=== PATIENT | female | born 1950 | race Two or more races ===

== ENCOUNTER 2017-12-25 10:42 | Emergency (ER) | payer BC ==
[2017-12-25 10:43] VITALS: BMI 28.2
[2017-12-25 10:54] VITALS: BP 175/77; PULSE 96; RESP 20; TEMP 98.3; O2SAT 97
--- NOTE | 2017-12-25 11:56 | RAD ---
PROCEDURE: Left Ankle Radiographs. HISTORY: twisted ankle COMPARISON: None FINDINGS: BONES: There is diffuse bone demineralization. There is no acute displaced fracture or bone destruction. Bone alignment is normal. JOINTS: There is mild degenerative osteoarthrosis in the talonavicular joint. Ankle mortise maintained. Talar dome intact SOFT TISSUES: There is mild periarticular soft tissue swelling. OTHER FINDINGS: None. IMPRESSION: No acute fracture or dislocation.
--- NOTE | 2017-12-25 12:12 | C.PDOC ---
History Of Present Illness 67 y/o female presents to the ED complaining of left ankle pain since yesterday. States that yesterday she was getting off the bus and twisted the left ankle. [place] as if something was pulled. Denies any numbness, tingling, or focal weakness. Patient ambulates using a cane at basline. She is still ambulatory but reports it is painful to walk. Time Seen by Provider: 12/25/17 10:58 Chief Complaint (Nursing): Lower Extremity Problem/Injury History Per: Patient History/Exam Limitations: no limitations Onset/Duration Of Symptoms: Days (x2) Current Symptoms Are (Timing): Still Present Past Medical History Reviewed: Historical Data, Nursing Documentation, Vital Signs Vital Signs: Last Vital Signs Temp 98.3 F 12/25/17 10:51 Pulse 96 H 12/25/17 10:51 Resp 20 12/25/17 10:51 BP 175/77 H 12/25/17 10:51 Pulse Ox 97 12/25/17 12:12 - Medical History PMH: Arthritis, HTN, Hypercholesterolemia, Hyperthyroidism Denies: Chronic Kidney Disease Surgical History: Tonsillectomy - [facility] Procedures COMPLETE THYROIDECTOMY (06/23/13) REPAIR OF HAMMER TOE (05/12/14) Family History: States: No Known Family Hx - Social History Hx Alcohol Use: No Hx Substance Use: No - Immunization History Hx Tetanus Toxoid Vaccination: No Hx Influenza Vaccination: No Hx Pneumococcal Vaccination: No Review Of Systems Except As Marked, All Systems Reviewed And Found Negative. Musculoskeletal: Positive for: Foot Pain (left ankle) Neurological: Negative for: Weakness, Numbness, Other (tingling) Physical Exam - Physical Exam Appears: Non-toxic, No Acute Distress Skin: Normal Color, Warm, Dry Extremity: Tenderness (Slight tenderness and swelling to left lateral malleolus) , No Deformity (of malleolus), Other (arthritic deformities to left foot) Pulses: Left Dorsalis Pedis: Normal, Right Dorsalis Pedis: Normal Neurological/Psych: Oriented x3, Normal Speech, Normal Motor, Normal Sensation Gait: Steady (with cane, at baseline) ED Course And Treatment O2 Sat by Pulse Oximetry: 97 (RA) Pulse Ox Interpretation: Normal - Other Rad x-ray left ankle X-Ray: Viewed By Me, Read By Radiologist Interpretation: FINDINGS: BONES: There is diffuse bone demineralization. There is no acute displaced fracture or bone destruction. Bone alignment is normal. JOINTS: There is mild degenerative osteoarthrosis in the talonavicular joint. Ankle mortise maintained. Talar dome intact. SOFT TISSUES : There is mild periarticular soft tissue swelling. OTHER FINDINGS: None. IMPRESSION: No acute fracture or dislocation. Progress Note: Patient informed of negative x-ray results. Left foot placed in air cast. Advised to follow up with orthopedist for further evaluation Disposition Counseled Patient/Family Regarding: Studies Performed, Diagnosis, Need For Followup - Disposition Disposition: HOME/ ROUTINE Disposition Time: 12:11 Condition: STABLE Additional Instructions: Follow up with Medicaid Specialist within 1-2 days. Return to ED if feel worse. Instructions: Ankle Sprain (DC) Forms: [employer] (Irish) - Clinical Impression Clinical Impression: Ankle sprain - PA / EPIC KALEIDOSCOPE ANALYST / Resident Statement MD/DO has reviewed & agrees with the documentation as recorded. - Scribe Statement The provider has reviewed the documentation as recorded by the Scribe (Ramona Sheridan) All medical record entries made by the Scribe were at my direction and personally dictated by me. I have reviewed the chart and agree that the record accurately reflects my personal performance of the history, physical exam, medical decision making, and the department course for this patient. I have also personally directed, reviewed, and agree with the discharge instructions and disposition.
== END 2017-12-25 12:34 | disposition home or self-care (01) ==
LOC: C.ER 10:42
DX: S93.402A Sprain of unspecified ligament of left ankle, initial encounter (principal); X50.9XXA Other and unspecified overexertion or strenuous movements or postures, initial encounter

== ENCOUNTER 2018-01-13 20:35 | Observation (INO) | payer BC ==
[2018-01-13 20:36] VITALS: BMI 28.2
--- NOTE | 2018-01-13 21:44 | C.PDOC ---
History Of Present Illness 67 year old female with PMHx of HTN and DM is brought to the ED by EMS for evaluation of a syncopal episode that occurred earlier today. As per family patient stood up then passed out on her fett which made her fall onto her knees and hit her head. Relatives report patient was out for approximately 1 minute. Patient is now c/o left shoulder pain, headache and multiple bruises to hands and left knee. Patient reports she does not remember what happened. Patient states he recently fractured her ankle 3 weeks ago but was not related to a fall. Patient denies fever, chills, nausea, vomit, dizziness, CP, SOB, weakness , numbness. - HPI Chief Complaint (Nursing): Trauma History Per: Patient History/Exam Limitations: no limitations Onset/Duration Of Symptoms: Days Injury Occurred (Timing): Just Before Arrival Location Of Injury: Right: Hand, Left: Hand, Head, Knee Associated Symptoms: LOC Recent travel outside of the [place]: No Additional History Per: Patient - Fall Fall:Prior To Injury: Passed Out Past Medical History Reviewed: Historical Data, Nursing Documentation, Vital Signs Vital Signs: Last Vital Signs Temp 98.7 F 01/13/18 20:44 Pulse 69 01/14/18 05:13 Resp 18 01/14/18 05:13 BP 116/53 L 01/14/18 05:13 Pulse Ox 98 01/14/18 05:13 - Medical History PMH: Arthritis, HTN, Hypercholesterolemia, Hyperthyroidism, Hypothyroidism Denies: Chronic Kidney Disease Surgical History: Tonsillectomy - [facility] Procedures COMPLETE THYROIDECTOMY (06/23/13) REPAIR OF HAMMER TOE (05/12/14) Family History: States: No Known Family Hx - Social History Hx Alcohol Use: No Hx Substance Use: No - Immunization History Hx Tetanus Toxoid Vaccination: No Hx Influenza Vaccination: No Hx Pneumococcal Vaccination: No Review Of Systems Constitutional: Negative for: Fever, Chills Eyes: Negative for: Vision Change Cardiovascular: Negative for: Chest Pain Respiratory: Negative for: Shortness of Breath Gastrointestinal: Negative for: Abdominal Pain Musculoskeletal: Positive for: Shoulder Pain Skin: Positive for: Bruising. Negative for: Rash Neurological: Positive for: Headache. Negative for: Weakness, Numbness Physical Exam - Physical Exam Appears: Non-toxic, No Acute Distress Skin: Normal Color, Warm, Dry Head: Normacephalic, Laceration (1 cm left temporal with no separation at wound edges) Eye(s): bilateral: Normal Inspection, PERRL, EOMI Nose: No Discharge Oral Mucosa: Moist Neck: Normal ROM, No Midline Cervical Tenderness, Supple Chest: Symmetrical Cardiovascular: Rhythm Regular, No Murmur Respiratory: Normal Breath Sounds, No Rales, No Rhonchi, No Wheezing Gastrointestinal/Abdominal: Soft, No Tenderness, No Guarding, No Rebound Back: No Paraspinal Tenderness Extremity: Normal ROM, Tenderness (left knee medial aspect, ecchymosis with hemarthrosis. Left shoulder hematoma humeral head), Capillary Refill (< 2 seconds), Other (left ankle air cast, ) Pulses: Left Radial: Normal, Right Radial: Normal, Left Dorsalis Pedis: Normal, Right Dorsalis Pedis: Normal Neurological/Psych: Oriented x3, Normal Speech, Normal Cognition, Normal Cranial Nerves, Normal Motor, Normal Sensation Gait: Unable To Assess ED Course And Treatment - Laboratory Results Result Diagrams: 01/14/18 04:24 01/14/18 04:24 ECG: Interpreted By Me, Viewed By Me ECG Rhythm: Sinus Rhythm ECG Interpretation: Normal Interpretation Of ECG: No ectopy, normal intervals, no acute ST or T wave changes Rate From EC (BPM) O2 Sat by Pulse Oximetry: 96 (ON RA) Pulse Ox Interpretation: Normal - Radiology CXR: Interpreted by Me, Viewed By Me CXR Interpretation: Yes: No Acute Disease. No: Infiltrates - Other Rad Left Knee X-Ray X-Ray: Interpreted by Me, Viewed By Me Interpretation: No evidence of fracture or dislocation. Protesis appears to be intact Left Shoulder X-Ray X-Ray: Interpreted by Me, Viewed By Me Interpretation: No acute fracture or dislocation - CT Scan/US CT head Other Rad Studies (CT/US): Read By Radiologist, Radiology Report Reviewed CT/US Interpretation: EXAM: CT Head Without Intravenous Contrast. CLINICAL HISTORY: 67 years old, female; Injury or trauma; Fall; Initial encounter; Blunt trauma (contusions or. hematomas); With loss of consciousness; Loss of consciousness for 30 minutes or less. TECHNIQUE: Axial computed tomography images of the head/brain without intravenous contrast. All CT scans at. this facility use one or more dose reduction techniques, viz.: automated exposure control; ma/kV. adjustment per patient size (including targeted exams where dose is matched to indication; i.e. head);. or iterative reconstruction technique. Coronal and sagittal reformatted images were created and reviewed. COMPARISON: No relevant prior studies available. FINDINGS: Brain: There is mild diffuse cerebral atrophy present, consistent with this patient's age. There is mild. diffuse heterogeneity of the white matter attenuation, consistent with chronic white matter ischemic. changes. No hemorrhage. Ventricles: The ventricular system demonstrates mild diffuse compensatory enlargement. Bones/joints: Unremarkable. No acute fracture. Soft tissues: Unremarkable. Sinuses: Unremarkable as visualized. No acute sinusitis. Mastoid air cells: Unremarkable as visualized. No mastoid effusion. IMPRESSION: Age-related atrophy and chronic white matter ischemic changes, with no evidence of an. acute intracranial abnormality. CTA chest Other Rad Studies (CT/US): Read By Radiologist, Radiology Report Reviewed CT/US Interpretation: EXAM: CT Angiography Chest With Intravenous Contrast. CLINICAL HISTORY: 67 years old, female; Signs and symptoms; Other: Eleveated d- dimer; Additional info: Syncope,. elevated ddimer. TECHNIQUE: Axial computed tomographic angiography images of the chest with intravenous contrast using. pulmonary embolism protocol. All CT scans at this facility use one or more dose reduction. techniques, viz.: automated exposure control; ma/kV adjustment per patient size (including targeted. exams where dose is matched to indication; i.e. head); or iterative reconstruction technique. MIP reconstructed images were created and reviewed. Coronal and sagittal reformatted images were created and reviewed. CONTRAST: 100 mL of [id number] administered intravenously. COMPARISON: No relevant prior studies available. FINDINGS: Pulmonary arteries: Unremarkable. No pulmonary embolism. Aorta: The aorta demonstrates mild atherosclerotic calcification. No thoracic aortic aneurysm. Lungs: Mild nonspecific bilateral groundglass attenuation is present. No focal consolidation. Right. middle lobe and lingular linear atelectasis or scar. Pleural space: Unremarkable. No significant effusion. No pneumothorax.Heart: Coronary artery calcification. No significant pericardial effusion. No evidence of RV. dysfunction. Bones/joints: There are degenerative changes in the spine with anterior flowing osteophytes at. multiple levels. No acute fracture. No dislocation. Soft tissues: Unremarkable. Lymph nodes: Unremarkable. No enlarged lymph nodes. IMPRESSION: No pulmonary embolism. Mild nonspecific groundglass attenuation bilaterally. No focal consolidation. Thank you for allowing us to participate in the care of your patient. Dictated and Authenticated by: Monae Packer MD. 01/13/2018 11:59 PM Eastern Time ([place] & [place]) Medical Decision Making Medical Decision Making: Impression: syncope plan: * CT head * EKG * Labs * CXR * Left knee X-Ray * Left shoulder X-Ray Disposition - Disposition Disposition: HOSPITALIZED Disposition Time: 05:14 Condition: FAIR - Clinical Impression Clinical Impression: Syncope - Scribe Statement The provider has reviewed the documentation as recorded by the Scribe Joseluis Nino All medical record entries made by the Scribe were at my direction and personally dictated by me. I have reviewed the chart and agree that the record accurately reflects my personal performance of the history, physical exam, medical decision making, and the department course for this patient. I have also personally directed, reviewed, and agree with the discharge instructions and disposition.
[2018-01-13 22:01] LABS: BASO # 0.1 K/uL (0.0-0.2); EOS # 0.1 K/uL (0.0-0.7); EOS % 2.1 % (0.0-4.0); HEMOGLOBIN 11.8 g/dL (11.0-16.0); LYMPH # 1.2 K/uL (1.0-4.3); MEAN CORPUSCULAR HEMOGLOBIN 31.4 pg (27.0-31.0); MEAN CORPUSCULAR HGB CONC 33.9 g/dL (33.0-37.0); MEAN PLATELET VOLUME 8.5 fL (7.2-11.7); MONO # 0.6 K/uL (0.0-0.8); MONO % 9.3 % (0.0-10.0); NEUT # 4.8 K/uL (1.8-7.0); NEUT % 69.6 % (50.0-75.0); RBC 3.76 Mil/uL (3.80-5.20); RED CELL DISTRIBUTION WIDTH 14.6 % (11.5-14.5); WHITE BLOOD COUNT 6.9 K/uL (4.8-10.8)
[2018-01-13 22:03] LABS: MEAN CELL VOLUME 92.5 fL (81.0-99.0)
[2018-01-13 22:10] LABS: INR 0.9; PROTHROMBIN TIME 10.1 SECONDS (9.7-12.2)
[2018-01-13 22:14] LABS: ALB/GLOB RATIO 1.2 (1.0-2.1); ALT/SGPT 19 U/L (9-52); AST/SGOT 24 U/L (14-36); BLOOD UREA NITROGEN 23 mg/dL (7-17); GFR AFRICAN-AMERICAN 55; GFR NON-AFRICAN AMERICAN 45
[2018-01-13] MEDS ORDERED: Iodixanol 320 MG/ML 100 ML BOTTLE IV ONE (22:30)
--- NOTE | 2018-01-13 23:33 | CT ---
EXAM: CT Head Without Intravenous Contrast CLINICAL HISTORY: 67 years old, female; Injury or trauma; Fall; Initial encounter; Blunt trauma (contusions or hematomas); With loss of consciousness; Loss of consciousness for 30 minutes or less TECHNIQUE: Axial computed tomography images of the head/brain without intravenous contrast. All CT scans at this facility use one or more dose reduction techniques, viz.: automated exposure control; ma/kV adjustment per patient size (including targeted exams where dose is matched to indication; i.e. head); or iterative reconstruction technique. Coronal and sagittal reformatted images were created and reviewed. COMPARISON: No relevant prior studies available. FINDINGS: Brain: There is mild diffuse cerebral atrophy present, consistent with this patient's age. There is mild diffuse heterogeneity of the white matter attenuation, consistent with chronic white matter ischemic changes. No hemorrhage. Ventricles: The ventricular system demonstrates mild diffuse compensatory enlargement. Bones/joints: Unremarkable. No acute fracture. Soft tissues: Unremarkable. Sinuses: Unremarkable as visualized. No acute sinusitis. Mastoid air cells: Unremarkable as visualized. No mastoid effusion. IMPRESSION: Age-related atrophy and chronic white matter ischemic changes, with no evidence of an acute intracranial abnormality.
--- NOTE | 2018-01-13 23:59 | CT ---
EXAM: CT Angiography Chest With Intravenous Contrast CLINICAL HISTORY: 67 years old, female; Signs and symptoms; Other: Eleveated d-dimer; Additional info: Syncope, elevated ddimer TECHNIQUE: Axial computed tomographic angiography images of the chest with intravenous contrast using pulmonary embolism protocol. All CT scans at this facility use one or more dose reduction techniques, viz.: automated exposure control; ma/kV adjustment per patient size (including targeted exams where dose is matched to indication; i.e. head); or iterative reconstruction technique. MIP reconstructed images were created and reviewed. Coronal and sagittal reformatted images were created and reviewed. CONTRAST: 100 mL of [id number] administered intravenously. COMPARISON: No relevant prior studies available. FINDINGS: Pulmonary arteries: Unremarkable. No pulmonary embolism. Aorta: The aorta demonstrates mild atherosclerotic calcification. No thoracic aortic aneurysm. Lungs: Mild nonspecific bilateral groundglass attenuation is present. No focal consolidation. Right middle lobe and lingular linear atelectasis or scar. Pleural space: Unremarkable. No significant effusion. No pneumothorax. Heart: Coronary artery calcification. No significant pericardial effusion. No evidence of RV dysfunction. Bones/joints: There are degenerative changes in the spine with anterior flowing osteophytes at multiple levels. No acute fracture. No dislocation. Soft tissues: Unremarkable. Lymph nodes: Unremarkable. No enlarged lymph nodes. IMPRESSION: No pulmonary embolism. Mild nonspecific groundglass attenuation bilaterally. No focal consolidation.
--- NOTE | 2018-01-14 00:59 | CP.PCM.HP ---
<Andrea Nunez - Last Filed: 01/14/18 02:57> History of Present Illness - History of Present Illness History of Present Illness: CC: Syncope 67 year old female with past medical history of hypertension, hyperlipidemia, thyroid nodule presents to the ED after having a syncope episode. Patient had a witnessed syncope episode at home around 8pm today. Patient stood up from sitting on a couch to put dinner plates away, where patient suddenly lost consciousness. Patient fell forward and injuring her knees, shoulder and forehead. Patient's last known memory was picking up plates off the table. She was unconscious for a few seconds before her family members came to wake up her. Patient denies tongue biting, urinary or fecal incontinence. No prior episode of the same and there is no recent changes in medication. Patient's family members deny witness of slurred of speech, facial droops, or extremity weaknesses. She further denies having fever, chills, shortness of breath, chest pain, nausea, vomiting, or diarrhea. PMD: Dr. Kevin Bermudez PMHx: hypertension, hyperlipidemia, thyroid nodule PSHx: tonsillectomy, thyroidectomy Allergy: NKDA Social Hx: social alcohol, denies tobacco or drug use Family Hx: non contributory Home meds: Lantus 5u bid, lipitor 10mg, valsartan 80mg, synthroid 0.112mg Present on Admission - Present on Admission Any Indicators Present on Admission: No Review of Systems - Constitutional Constitutional: As Per HPI. absent: Fever, Lethargy - EENT Eyes: As Per HPI. absent: Blind Spots Nose/Mouth/Throat: As Per HPI. absent: Epistaxis, Nasal Trauma - Breasts Breasts: As Per HPI - Cardiovascular Cardiovascular: As Per HPI, Syncope. absent: Chest Pain, Palpitations, Pedal Edema - Respiratory Respiratory: As Per HPI. absent: Cough, Dyspnea - Gastrointestinal Gastrointestinal: As Per HPI. absent: Abdominal Pain, Diarrhea, Nausea, Vomiting - Genitourinary Genitourinary: As Per HPI - Reproductive: Female Reproductive:Female: As Per HPI - Menstruation Menstruation: As Per HPI - Musculoskeletal Musculoskeletal: As Per HPI, Arthralgias, Stiffness - Integumentary Integumentary: As Per HPI, Erythema, Rash, Wounds - Neurological Neurological: As Per HPI, Headaches, Syncope - Psychiatric Psychiatric: As Per HPI. absent: Abnormal Sleep Pattern, Anxiety, Auditory Hallucinations - Endocrine Endocrine: As Per HPI. absent: Change in Body Appearance - Hematologic/Lymphatic Hematologic: As Per HPI. absent: Easy Bleeding Past Patient History - Past Medical History & Family History Past Medical History?: Yes - Past Social History Smoking Status: Heavy Smoker > 10 Cigarettes Daily - CARDIAC Hx Hypercholesterolemia: Yes Hx Hypertension: Yes - PULMONARY Hx Respiratory Disorders: No - NEUROLOGICAL Hx Neurological Disorder: Yes Other/Comment: TINGLING LT HAND - HEENT Hx HEENT Problems: No - RENAL Hx Chronic Kidney Disease: No - ENDOCRINE/METABOLIC Hx Hyperthyroidism: Yes Hx Hypothyroidism: Yes - HEMATOLOGICAL/ONCOLOGICAL Hx Blood Disorders: No - INTEGUMENTARY Hx Dermatological Problems: No - MUSCULOSKELETAL/RHEUMATOLOGICAL Hx Arthritis: Yes - GASTROINTESTINAL Hx Gastrointestinal Disorders: No - GENITOURINARY/GYNECOLOGICAL Hx Genitourinary Disorders: No - PSYCHIATRIC Hx Substance Use: No - SURGICAL HISTORY Hx Tonsillectomy: Yes - ANESTHESIA Hx Anesthesia: Yes Hx Anesthesia Reactions: No Hx Malignant Hyperthermia: No Meds Allergies/Adverse Reactions: Allergies Allergy/AdvReac Type Severity Reaction Status Date / Time No Known Allergies Allergy Verified 01/13/18 20:51 Physical Exam - Constitutional Appears: Non-toxic, No Acute Distress - Head Exam Head Exam: absent: ATRAUMATIC (left temporal laceration, no active bleeding appreciated) - Eye Exam Eye Exam: EOMI, Normal appearance - ENT Exam ENT Exam: Mucous Membranes Moist, Normal Exam - Neck Exam Neck exam: Positive for: Normal Inspection - Respiratory Exam Respiratory Exam: Clear to Auscultation Bilateral, NORMAL BREATHING PATTERN. absent: Wheezes, Respiratory Distress - Cardiovascular Exam Cardiovascular Exam: REGULAR RHYTHM, +S1, +S2 - GI/Abdominal Exam GI & Abdominal Exam: Normal Bowel Sounds, Soft. absent: Tenderness - Extremities Exam Extremities exam: Negative for: normal inspection Additional comments: left knee swelling and ecchymosis, left 2nd to 4th PIP joint abrasions, limited range of motion due to pain - Neurological Exam Neurological exam: Alert, Oriented x3 - Psychiatric Exam Psychiatric exam: Normal Affect, Normal Mood - Skin Skin Exam: Dry, Warm Results - Vital Signs Recent Vital Signs: Last Vital Signs Temp 98.7 F 01/13/18 20:44 Pulse 90 01/14/18 00:29 Resp 18 01/14/18 00:29 BP 170/81 H 01/14/18 00:29 Pulse Ox 98 01/14/18 00:29 - Labs Result Diagrams: 01/13/18 21:57 01/13/18 21:57 Labs: Laboratory Results - last 24 hr 01/13/18 01/13/18 01/13/18 20:48 21:57 21:57 WBC 6.9 RBC 3.76 L Hgb 11.8 Hct 34.8 MCV 92.5 D MCH 31.4 H MCHC 33.9 RDW 14.6 H Plt Count 306 MPV 8.5 Neut % (Auto) 69.6 Lymph % (Auto) 18.0 L [place] % (Auto) 9.3 Eos % (Auto) 2.1 Baso % (Auto) 1.0 Neut # (Auto) 4.8 Lymph # (Auto) 1.2 [place] # (Auto) 0.6 Eos # (Auto) 0.1 Baso # (Auto) 0.1 PT 10.1 INR 0.9 APTT 29 D-Dimer, Quantitative 844 H Sodium Potassium Chloride Carbon Dioxide Anion Gap BUN Creatinine Est GFR ( Amer) Est GFR (Non-Af Amer) POC Glucose (mg/dL) 228 H Random Glucose Calcium Total Bilirubin AST ALT Alkaline Phosphatase Troponin I Total Protein Albumin Globulin Albumin/Globulin Ratio 01/13/18 21:57 WBC RBC Hgb Hct MCV MCH MCHC RDW Plt Count MPV Neut % (Auto) Lymph % (Auto) [place] % (Auto) Eos % (Auto) Baso % (Auto) Neut # (Auto) Lymph # (Auto) [place] # (Auto) Eos # (Auto) Baso # (Auto) PT INR APTT D-Dimer, Quantitative Sodium 139 Potassium 4.5 Chloride 100 Carbon Dioxide 28 Anion Gap 15 BUN 23 H Creatinine 1.2 Est GFR ( Amer) 55 Est GFR (Non-Af Amer) 45 POC Glucose (mg/dL) Random Glucose 239 H Calcium 9.0 Total Bilirubin 0.5 AST 24 ALT 19 Alkaline Phosphatase 99 Troponin I < 0.0120 Total Protein 7.3 Albumin 4.0 Globulin 3.4 Albumin/Globulin Ratio 1.2 Assessment & Plan - Assessment and Plan (Free Text) Assessment: Syncope -Likely vasovagal -Head CT shows age-related atrophy and chronic white matter ischemic changes, without acute intracranial abnormality -Elevated d-dimer, CTA negative for PE -EKG NSR at 72bpm, no acute ST changes -Troponin negative, repeats pending -Follow up echo, carotid doppler, lipid panel -Orthostatic BP Mechanical fall -Motrin prn for pain -Follow up shoulder and Knee x-ray DM -Insulin glargine 5u Q12 -ISS -Hypoglycemia protocol -FS ACHS HTN -Losartan 50mg daily HLD -Crestor 5mg Prophylactic measures -Protonix -SCD <Scar Patel - Last Filed: 01/14/18 05:33> Results - Vital Signs Recent Vital Signs: Last Vital Signs Temp 98.7 F 01/13/18 20:44 Pulse 69 01/14/18 05:13 Resp 18 01/14/18 05:13 BP 116/53 L 01/14/18 05:13 Pulse Ox 96 01/14/18 05:15 - Labs Result Diagrams: 01/14/18 04:24 01/14/18 04:24 Labs: Laboratory Results - last 24 hr 01/13/18 01/13/18 01/13/18 20:48 21:57 21:57 WBC 6.9 RBC 3.76 L Hgb 11.8 Hct 34.8 MCV 92.5 D MCH 31.4 H MCHC 33.9 RDW 14.6 H Plt Count 306 MPV 8.5 Neut % (Auto) 69.6 Lymph % (Auto) 18.0 L [place] % (Auto) 9.3 Eos % (Auto) 2.1 Baso % (Auto) 1.0 Neut # (Auto) 4.8 Lymph # (Auto) 1.2 [place] # (Auto) 0.6 Eos # (Auto) 0.1 Baso # (Auto) 0.1 PT 10.1 INR 0.9 APTT 29 D-Dimer, Quantitative 844 H Sodium Potassium Chloride Carbon Dioxide Anion Gap BUN Creatinine Est GFR ( Amer) Est GFR (Non-Af Amer) POC Glucose (mg/dL) 228 H Random Glucose Calcium Total Bilirubin AST ALT Alkaline Phosphatase Troponin I Total Protein Albumin Globulin Albumin/Globulin Ratio Triglycerides Cholesterol LDL Cholesterol Direct HDL Cholesterol 01/13/18 01/14/18 01/14/18 21:57 04:24 04:24 WBC 7.1 RBC 3.38 L Hgb 10.5 L Hct 31.2 L MCV 92.3 MCH 31.0 MCHC 33.6 RDW 14.5 Plt Count 270 MPV 8.0 Neut % (Auto) 70.4 Lymph % (Auto) 15.8 L [place] % (Auto) 11.1 H Eos % (Auto) 1.8 Baso % (Auto) 0.9 Neut # (Auto) 5.0 Lymph # (Auto) 1.1 [place] # (Auto) 0.8 Eos # (Auto) 0.1 Baso # (Auto) 0.1 PT INR APTT D-Dimer, Quantitative Sodium 139 140 Potassium 4.5 3.8 Chloride 100 102 Carbon Dioxide 28 28 Anion Gap 15 14 BUN 23 H 20 H Creatinine 1.2 1.0 Est GFR ( Amer) 55 > 60 Est GFR (Non-Af Amer) 45 56 POC Glucose (mg/dL) Random Glucose 239 H 207 H Calcium 9.0 8.4 L Total Bilirubin 0.5 0.4 AST 24 19 ALT 19 15 Alkaline Phosphatase 99 78 Troponin I < 0.0120 Total Protein 7.3 6.0 L Albumin 4.0 3.3 L Globulin 3.4 2.8 Albumin/Globulin Ratio 1.2 1.2 Triglycerides 75 Cholesterol 129 LDL Cholesterol Direct 63 HDL Cholesterol 47 Assessment & Plan - Date & Time Date: 01/14/18 (I have seen and examined the patient. I agree with the findings and plan of care as documented by Dr. Nunez. Patient with syncope. CT head negative. D-dimer positive but CTA negative for PE. Check 2D Echo. Tele. ROMIx3 with EKG. Continue home meds for history of diabetes and hypertension. Monitor for acute changes. Fall precautions.) Time: 05:32 Attending/Attestation - Attestation I have personally seen and examined this patient.: Yes I have fully participated in the care of the patient.: Yes I have reviewed all pertinent clinical information: Yes
[2018-01-14] MEDS ORDERED: Glucagon Recombinant 1 mg Inj IM PRN (01:35)
[2018-01-14] MEDS ORDERED: Dextrose 50% SYRINGE Inj (50 ml) IVP PRN (01:35)
[2018-01-14 04:28] LABS: BASO # 0.1 K/uL (0.0-0.2); BASO % 0.9 % (0.0-2.0); EOS # 0.1 K/uL (0.0-0.7); EOS % 1.8 % (0.0-4.0); HEMOGLOBIN 10.5 g/dL (11.0-16.0); LYMPH # 1.1 K/uL (1.0-4.3); LYMPH % 15.8 % (20.0-40.0); MEAN CELL VOLUME 92.3 fL (81.0-99.0); MEAN CORPUSCULAR HGB CONC 33.6 g/dL (33.0-37.0); MONO # 0.8 K/uL (0.0-0.8); MONO % 11.1 % (0.0-10.0); NEUT % 70.4 % (50.0-75.0); NRBC % 0.1 % (0.0-2.0); RBC 3.38 Mil/uL (3.80-5.20); RED CELL DISTRIBUTION WIDTH 14.5 % (11.5-14.5); WHITE BLOOD COUNT 7.1 K/uL (4.8-10.8)
[2018-01-14 05:01] LABS: ALB/GLOB RATIO 1.2 (1.0-2.1); ALBUMIN 3.3 g/dL (3.5-5.0); ALT/SGPT 15 U/L (9-52); AST/SGOT 19 U/L (14-36); BLOOD UREA NITROGEN 20 mg/dL (7-17); CALCIUM 8.4 mg/dl (8.6-10.4); GFR AFRICAN-AMERICAN > 60; GFR NON-AFRICAN AMERICAN 56; HDL CHOLESTEROL 47 mg/dL (30-70)
[2018-01-14 05:08] LABS: LDL CHOLESTEROL 63 mg/dL (0-129)
[2018-01-14] MEDS: Levothyroxine 112 MCG TAB PO SCH (06:05)
[2018-01-14 07:09] LABS: CK-MB 1.41 ng/mL (0.0-3.38)
[2018-01-14] MEDS ORDERED: (Novolin R) Insulin Human Regular 100 units/ml vial ONE (08:27)
[2018-01-14] MEDS: (Novolin R) Insulin Human Regular 100 units/ml vial SC SCH ×4 (08:32→21:18)
--- NOTE | 2018-01-14 08:44 | RAD ---
PROCEDURE: Left Knee Radiographs. HISTORY: Pain. COMPARISON: None. FINDINGS: BONES: Normal. No fracture. JOINTS: Status post total knee replacement. No evidence of prosthesis loosening. JOINT EFFUSION: None. OTHER FINDINGS: None. IMPRESSION: Total knee replacement. No evidence of loosening. Otherwise unremarkable.
--- NOTE | 2018-01-14 08:45 | RAD ---
PROCEDURE: Radiographs of the Left Shoulder HISTORY: trauma COMPARISON: No prior. FINDINGS: BONES: Normal. No fracture. JOINTS: Normal. Glenohumeral and acromioclavicular joints preserved. No osteoarthritis. SOFT TISSUES: Normal. OTHER FINDINGS: None. IMPRESSION: Normal radiographs of the left shoulder.
--- NOTE | 2018-01-14 08:46 | RAD ---
Chest x-ray single frontal view History: Chest pain. Comparison: 01/13/2018 Findings: Diffuse increased interstitial lung markings. Mild patchy increased markings at the lung bases. Mild atelectasis at the left lung base. Tortuous aorta. Degenerative changes in the spine and shoulders. Impression: Diffuse increased interstitial lung markings. Mild patchy increased markings at the lung bases. Mild atelectasis at the left lung base. Tortuous aorta.
[2018-01-14] MEDS ORDERED: (Lantus) Insulin Glargine, Recombinant SC ONE (10:23)
[2018-01-14] MEDS: (Lantus) Insulin Glargine, Recombinant SC SCH ×2 (11:27→21:21)
[2018-01-14 11:38] LABS: CK-MB 1.08 ng/mL (0.0-3.38)
--- NOTE | 2018-01-14 11:56 | VASCLAB ---
PROCEDURE: HISTORY: syncope COMPARISON: None available. TECHNIQUE: Grayscale and duplex Doppler evaluation of the cervical carotid and vertebral arteries were performed. The common carotid, carotid bifurcations and cervical Internal Carotid Artery (ICA) and proximal External Carotid Artery (ECA) were evaluated. The vertebral arteries were evaluated for gross patency and flow direction. Report prepared by Paul Alicea, BS, RVT FINDINGS: RIGHT CAROTID ARTERIES: 1. Common Carotid Artery: No significant focal plaque formation of the right common carotid artery. Maximum Peak Systolic velocity: 74 cm/sec: End-diastolic velocity 13 cm/sec. 2. Carotid Bifurcation: plaque formation. Maximum Peak Systolic velocity: 72 cm/sec: End-diastolic velocity 16 cm/sec. 3. Internal Carotid Artery: Plaque description: 3.1. Proximal Segment: Peak systolic velocity 97 cm/sec: End-diastolic velocity 23 cm/sec - % stenosis 0-15% 3.2. Middle Segment: Peak systolic velocity 95 cm/sec: End-diastolic velocity 25 cm/sec - % stenosis 0-15% 3.3. Distal Segment: Peak systolic velocity 88 cm/sec: End-diastolic velocity 28 cm/sec - % stenosis 0-15% 4. External Carotid Artery: No significant focal plaque formation. Peak systolic velocity 144 cm/sec 5. ICA/CCA Ratio: 1.3 LEFT CAROTID ARTERIES: 1. Common Carotid Artery: No significant focal plaque formation of the left common carotid artery. Maximum Peak Systolic velocity: 94 cm/sec: End-diastolic velocity 15 cm/sec. 2. Carotid Bifurcation: plaque formation. Maximum Peak Systolic velocity: 104 cm/sec: End-diastolic velocity 18 cm/sec. 3. Internal Carotid Artery: Plaque description: 3.1. Proximal Segment: Peak systolic velocity 124 cm/sec: End-diastolic velocity 26 cm/sec - % stenosis 0-15% 3.2. Middle Segment: Peak systolic velocity 101 cm/sec: End-diastolic velocity 27 cm/sec - % stenosis 0-15% 3.3. Distal Segment: Peak systolic velocity 88 cm/sec: End-diastolic velocity 27 cm/sec - % stenosis 0-15% 4. External Carotid Artery: No significant focal plaque formation. Peak systolic velocity 145 cm/sec 5. ICA/CCA Ratio: 1.3 VERTEBRAL ARTERIES: 1. Right Vertebral Artery: The right vertebral artery flow direction is antegrade. 2. Left Vertebral Artery: The left vertebral artery flow direction is antegrade. OTHER FINDINGS: 1. Right Brachial Blood pressure: 136 mmHg. 2. Left Brachial Blood pressure: 130 mmHg. IMPRESSION: RIGHT: Duplex scan does not suggest hemodynamically significant stenosis of the right extracranial carotid arteries. LEFT: Duplex scan does not suggest hemodynamically significant stenosis of the left extracranial carotid arteries.
--- NOTE | 2018-01-14 16:06 | CP.PCM.PN ---
<Rebeca Lopez E - Last Filed: 01/14/18 16:34> Subjective - Date & Time of Evaluation Date of Evaluation: 01/14/18 Time of Evaluation: 07:50 - Subjective Subjective: Medicine progress note ( Dr. Jones's service) Patient was seen and examined in the ED. Patient reports that she is doing well with no complaints. Patient denies fever, chills, nausea, vomiting, chest pain, palpitations, SOB, dizziness. Patient is tolerating diet and ambulating without difficulty. Objective - Vital Signs/Intake and Output Vital Signs (last 24 hours): Temp Pulse Resp BP Pulse Ox 98.6 F 67 20 147/80 98 01/14/18 12:26 01/14/18 14:02 01/14/18 12:26 01/14/18 12:26 01/14/18 14:02 Intake and Output: 01/14/18 01/14/18 06:59 18:59 Intake Total 350 Output Total 800 Balance -450 - Medications Medications: Current Medications Dextrose (Dextrose 50% Inj) 0 ml IVP .STAT PRN; Protocol PRN Reason: Hypoglycemia Protocol Dextrose (Glutose 15) 0 gm PO .ONCE PRN; Protocol PRN Reason: Hypoglycemia Protocol Glucagon (Glucagen Diagnostic Kit) 0 mg IM .STAT PRN; Protocol PRN Reason: Hypoglycemia Protocol Dextrose (Dextrose 5% In Water 1000 Ml) 1,000 mls @ 0 mls/hr IV .Q0M PRN; Protocol; Per Protocol PRN Reason: Hypoglycemia Protocol Ibuprofen (Motrin Tab) 400 mg PO Q6 PRN PRN Reason: Pain, Mild (1-3) Insulin Glargine (Lantus) 5 unit SC Q12 [facility] Last Admin: 01/14/18 11:27 Dose: 5 unit Insulin Human Regular (Novolin R) 0 unit SC ACHS [facility] PRN Reason: Protocol Last Admin: 01/14/18 11:30 Dose: 2 unit Levothyroxine Sodium (Synthroid) 112 mcg PO DAILY@0630 [facility] Last Admin: 01/14/18 06:05 Dose: 112 mcg Losartan Potassium (Cozaar) 50 mg PO DAILY [facility] Last Admin: 01/14/18 11:27 Dose: 50 mg Pantoprazole Sodium (Protonix Inj) 40 mg IVP DAILY [facility] Last Admin: 01/14/18 11:27 Dose: 40 mg Rosuvastatin Calcium (Crestor) 5 mg PO HS [facility] - Labs Labs: 01/14/18 04:24 01/14/18 04:24 PT 10.1 SECONDS (9.7-12.2) 01/13/18 21:57 INR 0.9 01/13/18 21:57 APTT 29 SECONDS (21-34) 01/13/18 21:57 - Constitutional Appears: Well, No Acute Distress - Head Exam Head Exam: ATRAUMATIC, NORMAL INSPECTION - Eye Exam Eye Exam: EOMI, Normal appearance, PERRL - ENT Exam ENT Exam: Mucous Membranes Moist - Respiratory Exam Respiratory Exam: Clear to Ausculation Bilateral, NORMAL BREATHING PATTERN. absent: Prolonged Expiratory Phase, Rhonchi, Wheezes - Cardiovascular Exam Cardiovascular Exam: REGULAR RHYTHM, +S1, +S2. absent: Murmur - GI/Abdominal Exam GI & Abdominal Exam: Soft, Normal Bowel Sounds. absent: Rigid, Tenderness - Extremities Exam Extremities Exam: Normal Inspection. absent: Calf Tenderness - Neurological Exam Neurological Exam: Alert, Awake, CN II-XII Intact, Oriented x3. absent: Motor Sensory Deficit - Psychiatric Exam Psychiatric exam: Normal Affect, Normal Mood - Skin Skin Exam: Normal Color Assessment and Plan (1) Syncope Assessment & Plan: -Likely vasovagal -Head CT shows age-related atrophy and chronic white matter ischemic changes, without acute intracranial abnormality -Elevated d-dimer, CTA negative for PE -EKG NSR at 72bpm, no acute ST changes -Troponin negative x3 -Lipid panel: TGL: 75, Chol:129, LDL:63 and HDL: 47 -Carotid doppler: Left and right duplex scan does not suggest hemodynamically significantly stenosis \ -F/u Echo and orthostatic BP Mechanical fall ( Imaging and management): -Motrin prn for pain -shoulder and Knee x-ray: Normal, no fracture and Knee X-ray note for total knee replacement ( No evidence loosening) Status: Acute (2) Diabetes mellitus Assessment & Plan: -Insulin glargine 5u Q12 -ISS -Hypoglycemia protocol -FS ACHS Status: Acute (3) Hypertension Assessment & Plan: -Losartan 50mg daily Status: Acute (4) Hyperlipidemia Assessment & Plan: -Crestor 5mg Status: Acute (5) Hypothyroidism Assessment & Plan: Continue home medications: * Synthroid 112mcg po daily Status: Acute (6) Prophylactic measure Assessment & Plan: GI: Pepcid 20mg PO BID DVT: SCD, ambulating All plans and management discussed with Dr. Jones Status: Acute <KarenAlireza Hidalgo - Last Filed: 01/14/18 18:44> Objective - Vital Signs/Intake and Output Vital Signs (last 24 hours): Temp Pulse Resp BP Pulse Ox 98.4 F 71 20 134/71 96 01/14/18 15:00 01/14/18 16:40 01/14/18 15:00 01/14/18 15:00 01/14/18 15:00 Intake and Output: 01/14/18 01/14/18 06:59 18:59 Intake Total 350 Output Total 800 Balance -450 - Medications Medications: Current Medications Dextrose (Dextrose 50% Inj) 0 ml IVP .STAT PRN; Protocol PRN Reason: Hypoglycemia Protocol Dextrose (Glutose 15) 0 gm PO .ONCE PRN; Protocol PRN Reason: Hypoglycemia Protocol Famotidine (Pepcid) 20 mg PO BID [facility] Glucagon (Glucagen Diagnostic Kit) 0 mg IM .STAT PRN; Protocol PRN Reason: Hypoglycemia Protocol Dextrose (Dextrose 5% In Water 1000 Ml) 1,000 mls @ 0 mls/hr IV .Q0M PRN; Protocol; Per Protocol PRN Reason: Hypoglycemia Protocol Ibuprofen (Motrin Tab) 400 mg PO Q6 PRN PRN Reason: Pain, Mild (1-3) Insulin Glargine (Lantus) 5 unit SC Q12 [facility] Last Admin: 01/14/18 11:27 Dose: 5 unit Insulin Human Regular (Novolin R) 0 unit SC ACHS [facility] PRN Reason: Protocol Last Admin: 01/14/18 17:56 Dose: 2 unit Levothyroxine Sodium (Synthroid) 112 mcg PO DAILY@0630 [facility] Last Admin: 01/14/18 06:05 Dose: 112 mcg Losartan Potassium (Cozaar) 50 mg PO DAILY [facility] Last Admin: 01/14/18 11:27 Dose: 50 mg Rosuvastatin Calcium (Crestor) 5 mg PO HS [facility] - Labs Labs: 01/14/18 04:24 01/14/18 04:24 PT 10.1 SECONDS (9.7-12.2) 01/13/18 21:57 INR 0.9 04/15/18 21:57 APTT 29 SECONDS (21-34) 01/13/18 21:57 Attending/Attestation - Attestation I have personally seen and examined this patient.: Yes I have fully participated in the care of the patient.: Yes I have reviewed all pertinent clinical information, including history, physical exam and plan: Yes Notes (Text): 01/14/18 18:43 Medical attending: Patient was seen and examined by me. Agree with the above note by the resident The patient was not in any acute distress when we saw her. She was still in the ER waiting for bed to open up upstairs on the floors. Echo and carotid studies pending. She had a CT of the head - this was stable We should also check orthostatics as well The patient explains she normally walks with a cane as she has had a lot of back pain history thank you Alireza Jones 01/14/18 18:44
--- NOTE | 2018-01-15 02:07 | CARD ---
APPROVED REPORT EKG Measurement Heart [id number] <Conclusion> Normal sinus rhythm Normal ECG
[2018-01-15] MEDS: Levothyroxine 112 MCG TAB PO SCH (06:04)
[2018-01-15 07:30] VITALS: BP 161/80; PULSE 62; RESP 18; TEMP 98.1; O2SAT 96
[2018-01-15 08:07] LABS: BASO # 0.1 K/uL (0.0-0.2); BASO % 0.8 % (0.0-2.0); EOS # 0.2 K/uL (0.0-0.7); EOS % 2.5 % (0.0-4.0); HEMOGLOBIN 11.3 g/dL (11.0-16.0); LYMPH # 1.5 K/uL (1.0-4.3); LYMPH % 23.1 % (20.0-40.0); MEAN CELL VOLUME 91.5 fL (81.0-99.0); MEAN CORPUSCULAR HGB CONC 33.8 g/dL (33.0-37.0); MEAN PLATELET VOLUME 8.1 fL (7.2-11.7); MONO # 0.6 K/uL (0.0-0.8); MONO % 9.6 % (0.0-10.0); NEUT # 4.1 K/uL (1.8-7.0); RBC 3.65 Mil/uL (3.80-5.20); RED CELL DISTRIBUTION WIDTH 15.1 % (11.5-14.5); WHITE BLOOD COUNT 6.5 K/uL (4.8-10.8)
[2018-01-15] MEDS: (Novolin R) Insulin Human Regular 100 units/ml vial SC SCH ×2 (08:15→13:44)
[2018-01-15 08:29] LABS: ALB/GLOB RATIO 1.1 (1.0-2.1); ALBUMIN 3.5 g/dL (3.5-5.0); ALT/SGPT 15 U/L (9-52); AST/SGOT 29 U/L (14-36); BLOOD UREA NITROGEN 22 mg/dL (7-17); CALCIUM 8.6 mg/dl (8.6-10.4); GFR AFRICAN-AMERICAN > 60; GFR NON-AFRICAN AMERICAN > 60
[2018-01-15] MEDS: (Lantus) Insulin Glargine, Recombinant SC SCH (09:55)
--- NOTE | 2018-01-15 12:28 | CARD ---
APPROVED REPORT EKG Measurement Heart [id number] <Conclusion> Normal sinus rhythm Normal ECG
--- NOTE | 2018-01-15 13:59 | CP.PCM.DIS ---
<Rebeca Lopez E - Last Filed: 01/15/18 14:31> Provider - Provider Date of Admission: 01/13/18 23:26 Attending physician: Alireza Jones DO Time Spent in preparation of Discharge (in minutes): 35 Diagnosis - Discharge Diagnosis (1) Syncope Status: Acute (2) Diabetes mellitus Status: Chronic (3) Hypertension Status: Chronic (4) Hyperlipidemia Status: Chronic (5) Hypothyroidism Status: Chronic (6) Prophylactic measure Status: Acute Hospital Course - Lab Results Lab Results: Most Recent Lab Values WBC 6.5 K/uL (4.8-10.8) 01/15/18 07:53 RBC 3.65 Mil/uL (3.80-5.20) L 01/15/18 07:53 Hgb 11.3 g/dL (11.0-16.0) 01/15/18 07:53 Hct 33.4 % (34.0-47.0) L 01/15/18 07:53 MCV 91.5 fL (81.0-99.0) 01/15/18 07:53 MCH 31.0 pg (27.0-31.0) 01/15/18 07:53 MCHC 33.8 g/dL (33.0-37.0) 01/15/18 07:53 RDW 15.1 % (11.5-14.5) H 01/15/18 07:53 Plt Count 309 K/uL (130-400) 01/15/18 07:53 MPV 8.1 fL (7.2-11.7) 01/15/18 07:53 Neut % (Auto) 64.0 % (50.0-75.0) 01/15/18 07:53 Lymph % (Auto) 23.1 % (20.0-40.0) 01/15/18 07:53 [place] % (Auto) 9.6 % (0.0-10.0) 01/15/18 07:53 Eos % (Auto) 2.5 % (0.0-4.0) 01/15/18 07:53 Baso % (Auto) 0.8 % (0.0-2.0) 01/15/18 07:53 Neut # (Auto) 4.1 K/uL (1.8-7.0) 01/15/18 07:53 Lymph # (Auto) 1.5 K/uL (1.0-4.3) 01/15/18 07:53 [place] # (Auto) 0.6 K/uL (0.0-0.8) 01/15/18 07:53 Eos # (Auto) 0.2 K/uL (0.0-0.7) 01/15/18 07:53 Baso # (Auto) 0.1 K/uL (0.0-0.2) 01/15/18 07:53 PT 10.1 SECONDS (9.7-12.2) 01/13/18 21:57 INR 0.9 01/13/18 21:57 APTT 29 SECONDS (21-34) 01/13/18 21:57 D-Dimer, Quantitative 844 ng/mlDDU (0-243) H 01/13/18 21:57 Sodium 139 mmol/L (132-148) 01/15/18 07:53 Potassium 4.1 mmol/L (3.6-5.2) 01/15/18 07:53 Chloride 102 mmol/L (98-107) 01/15/18 07:53 Carbon Dioxide 27 mmol/L (22-30) 01/15/18 07:53 Anion Gap 14 (10-20) 01/15/18 07:53 BUN 22 mg/dL (7-17) H 01/15/18 07:53 Creatinine 0.9 mg/dL (0.7-1.2) 01/15/18 07:53 Est GFR ( Amer) > 60 01/15/18 07:53 Est GFR (Non-Af Amer) > 60 01/15/18 07:53 POC Glucose (mg/dL) 174 mg/dL (65-110) H 01/15/18 12:55 Random Glucose 162 mg/dL (65-105) H 01/15/18 07:53 Calcium 8.6 mg/dl (8.6-10.4) 01/15/18 07:53 Phosphorus 3.3 mg/dL (2.5-4.5) 01/15/18 07:53 Magnesium 1.8 mg/dL (1.6-2.3) 01/15/18 07:53 Total Bilirubin 0.4 mg/dL (0.2-1.3) 01/15/18 07:53 AST 29 U/L (14-36) 01/15/18 07:53 ALT 15 U/L (9-52) 01/15/18 07:53 Alkaline Phosphatase 80 U/L (38-126) 01/15/18 07:53 Total Creatine Kinase 95 U/L (30-135) 01/14/18 11:06 CK-MB (Mass) 1.08 ng/mL (0.0-3.38) 01/14/18 11:06 Troponin I < 0.0120 ng/mL (0.00-0.120) 01/14/18 11:06 Total Protein 6.7 g/dL (6.3-8.3) 01/15/18 07:53 Albumin 3.5 g/dL (3.5-5.0) 01/15/18 07:53 Globulin 3.2 gm/dL (2.2-3.9) 01/15/18 07:53 Albumin/Globulin Ratio 1.1 (1.0-2.1) 01/15/18 07:53 Triglycerides 75 mg/dL (0-149) 01/14/18 04:24 Cholesterol 129 mg/dL (0-199) 01/14/18 04:24 LDL Cholesterol Direct 63 mg/dL (0-129) 01/14/18 04:24 HDL Cholesterol 47 mg/dL (30-70) 01/14/18 04:24 - Hospital Course Hospital Course: HPI ( As per admission): 67 year old female with past medical history of hypertension, hyperlipidemia, thyroid nodule presents to the ED after having a syncope episode. Patient had a witnessed syncope episode at home around 8pm today. Patient stood up from sitting on a couch to put dinner plates away, where patient suddenly lost consciousness. Patient fell forward and injuring her knees, shoulder and forehead. Patient's last known memory was picking up plates off the table. She was unconscious for a few seconds before her family members came to wake up her. Patient denies tongue biting, urinary or fecal incontinence. No prior episode of the same and there is no recent changes in medication. Patient's family members deny witness of slurred of speech, facial droops, or extremity weaknesses. She further denies having fever, chills, shortness of breath, chest pain, nausea, vomiting, or diarrhea. Hospital course: Patient was admitted with the diagnosis of first-time syncope. Patient had all the proper diagnostic imaging and labs, which were negative. Over the course of admission, patient had no acute issues and remained stable. Patient was able to ambulate with her cane without any difficulties. Patient tolerated diet and had no episode of syncope. Patient was discharged home with appropriate discharge instruction. Patient is aware that she must follow up with her primary care physician for close monitoring and her echocardiogram results. Pertinent imaging and labs: Head CT: shows age-related atrophy and chronic white matter ischemic changes, without acute intracranial abnormality, refer to the EMR for complete record Chest CT: due to elevated D-dimer on admission: No pulmonary embolism. Mild nonspecific groundglass attenuation bilaterally. No focal consolidation. EKG: NSR at 72bpm, no acute ST changes Left Shoulder X-ray ( Post Syncope): Normal radiographs of the left shoulder. Knee X-ray ( Post- Syncope):Total knee replacement. No evidence of loosening. Otherwise unremarkable. Carotid doppler: Left and right duplex scan does not suggest hemodynamically significantly stenosis Echocardiogram: Awaiting official reports. Patient is to follow up with her primary care physician, Dr. Reynold Bermudez for echocardiogram report and follow up Troponin negative x3 Lipid panel: TGL: 75, Chol:129, LDL:63 and HDL: 47 This is a brief summary of events. For a complete course, please refer to the medical record Discharge Exam - Head Exam Head Exam: ATRAUMATIC, NORMAL INSPECTION - Eye Exam Eye Exam: EOMI, Normal appearance, PERRL - ENT Exam ENT Exam: Mucous Membranes Moist - Respiratory Exam Respiratory Exam: Clear to PA & Lateral, NORMAL BREATHING PATTERN. absent: Chest Wall Tenderness, Decreased Breath Sounds, Rales, Wheezes, Respiratory Distress - Cardiovascular Exam Cardiovascular Exam: REGULAR RHYTHM, +S1, +S2. absent: Diastolic murmur, Systolic Murmur - GI/Abdominal Exam GI & Abdominal Exam: Normal Bowel Sounds, Soft. absent: Diminished Bowel Sounds , Distended, Firm, Guarding, Tenderness - Extremities Exam Extremities exam: normal inspection Additional comments: Left knee mildly swollen post-syncope episode. X-ray negative for any fracture and loosening of knee replacement - Neurological Exam Neurological exam: Alert, Oriented x3 - Psychiatric Exam Psychiatric exam: Normal Affect - Skin Skin Exam: Normal Color Discharge Plan - Discharge Medications Prescriptions: Aspirin [Adult Low Dose Aspirin EC] 81 mg PO DAILY #30 tablet.dr - Follow Up Plan Condition: FAIR Disposition: HOME/ ROUTINE Instructions: Diabetes Diet , Diabetes Type 2 (DC), Hypothyroidism ( Underactive Thyroid) (DC), Aspirin, Syncope (DC), Hypertension (DC) Additional Instructions: Please discharge patient home Please resume all your home medications as prescribed by your PMD, Dr. Reynold Bermudez Please start this following medication: 1. Aspirin 81mg PO daily Please follow up with your primary care physician Dr. Reynold Bermudez within a 1 week of discharge Please follow up with your primary care physician Dr. Reynold Bermudez to go over your Echocardiogram results or call [facility] to receive your report Please take care <Alireza Jones - Last Filed: 01/16/18 09:14> Provider - Provider Date of Admission: 01/13/18 23:26 Attending physician: Alireza Jones, DO Hospital Course - Lab Results Lab Results: Most Recent Lab Values WBC 6.5 K/uL (4.8-10.8) 01/15/18 07:53 RBC 3.65 Mil/uL (3.80-5.20) L 01/15/18 07:53 Hgb 11.3 g/dL (11.0-16.0) 01/15/18 07:53 Hct 33.4 % (34.0-47.0) L 01/15/18 07:53 MCV 91.5 fL (81.0-99.0) 01/15/18 07:53 MCH 31.0 pg (27.0-31.0) 01/15/18 07:53 MCHC 33.8 g/dL (33.0-37.0) 01/15/18 07:53 RDW 15.1 % (11.5-14.5) H 01/15/18 07:53 Plt Count 309 K/uL (130-400) 01/15/18 07:53 MPV 8.1 fL (7.2-11.7) 01/15/18 07:53 Neut % (Auto) 64.0 % (50.0-75.0) 01/15/18 07:53 Lymph % (Auto) 23.1 % (20.0-40.0) 01/15/18 07:53 [place] % (Auto) 9.6 % (0.0-10.0) 01/15/18 07:53 Eos % (Auto) 2.5 % (0.0-4.0) 01/15/18 07:53 Baso % (Auto) 0.8 % (0.0-2.0) 01/15/18 07:53 Neut # (Auto) 4.1 K/uL (1.8-7.0) 01/15/18 07:53 Lymph # (Auto) 1.5 K/uL (1.0-4.3) 01/15/18 07:53 [place] # (Auto) 0.6 K/uL (0.0-0.8) 01/15/18 07:53 Eos # (Auto) 0.2 K/uL (0.0-0.7) 01/15/18 07:53 Baso # (Auto) 0.1 K/uL (0.0-0.2) 01/15/18 07:53 PT 10.1 SECONDS (9.7-12.2) 01/13/18 21:57 INR 0.9 01/13/18 21:57 APTT 29 SECONDS (21-34) 01/13/18 21:57 D-Dimer, Quantitative 844 ng/mlDDU (0-243) H 01/13/18 21:57 Sodium 139 mmol/L (132-148) 01/15/18 07:53 Potassium 4.1 mmol/L (3.6-5.2) 01/15/18 07:53 Chloride 102 mmol/L (98-107) 01/15/18 07:53 Carbon Dioxide 27 mmol/L (22-30) 01/15/18 07:53 Anion Gap 14 (10-20) 01/15/18 07:53 BUN 22 mg/dL (7-17) H 01/15/18 07:53 Creatinine 0.9 mg/dL (0.7-1.2) 01/15/18 07:53 Est GFR ( Amer) > 60 01/15/18 07:53 Est GFR (Non-Af Amer) > 60 01/15/18 07:53 POC Glucose (mg/dL) 174 mg/dL (65-110) H 01/15/18 12:55 Random Glucose 162 mg/dL (65-105) H 01/15/18 07:53 Calcium 8.6 mg/dl (8.6-10.4) 01/15/18 07:53 Phosphorus 3.3 mg/dL (2.5-4.5) 01/15/18 07:53 Magnesium 1.8 mg/dL (1.6-2.3) 01/15/18 07:53 Total Bilirubin 0.4 mg/dL (0.2-1.3) 01/15/18 07:53 AST 29 U/L (14-36) 01/15/18 07:53 ALT 15 U/L (9-52) 01/15/18 07:53 Alkaline Phosphatase 80 U/L (38-126) 01/15/18 07:53 Total Creatine Kinase 95 U/L (30-135) 01/14/18 11:06 CK-MB (Mass) 1.08 ng/mL (0.0-3.38) 01/14/18 11:06 Troponin I < 0.0120 ng/mL (0.00-0.120) 01/14/18 11:06 Total Protein 6.7 g/dL (6.3-8.3) 01/15/18 07:53 Albumin 3.5 g/dL (3.5-5.0) 01/15/18 07:53 Globulin 3.2 gm/dL (2.2-3.9) 01/15/18 07:53 Albumin/Globulin Ratio 1.1 (1.0-2.1) 01/15/18 07:53 Triglycerides 75 mg/dL (0-149) 01/14/18 04:24 Cholesterol 129 mg/dL (0-199) 01/14/18 04:24 LDL Cholesterol Direct 63 mg/dL (0-129) 01/14/18 04:24 HDL Cholesterol 47 mg/dL (30-70) 01/14/18 04:24 Attending/Attestation - Attestation I have personally seen and examined this patient.: Yes I have fully participated in the care of the patient.: Yes I have reviewed all pertinent clinical information, including history, physical exam and plan: Yes Notes (Text): Medical attending: Patient was seen and examined by me. Agree with the above note by the resident. The patient was not in any acute distress when we saw her. She has been ambulating in her room with her walking cane She felt ready to leave. She underwent echo just recently. She understands she needs to follow up with her PMD. thank you Alireza Jones
--- NOTE | 2018-01-15 16:28 | CARD ---
APPROVED REPORT EXAM: Two-dimensional and M-mode echocardiogram with Doppler and color Doppler. Other Information Quality : GoodRhythm : INDICATION Chest Pain Syncope RISK FACTORS Hypertension Hyperlipidemia Diabetes 2D DIMENSIONS IVSd1.1 (0.7-1.1cm)LVDd4.3 (3.9-5.9cm) PWd1.3 (0.7-1.1cm)LVDs2.8 (2.5-4.0cm) FS (%) 36.4 %LVEF (%)66.4 (>50%) M-Mode DIMENSIONS Left Atrium (MM)3.04 (2.5-4.0cm)Aortic Root3.20 (2.2-3.7cm) Aortic Cusp Exc.2.02 (1.5-2.0cm) Mitral Valve MV E Hktjdado60.6cm/sMV A Xmqzozvk85.3cm/sE/A ratio1.1 TDI E/Lateral E'0.0E/Medial E'0.0 Tricuspid Valve TR Peak Guqhacry214dr/sTR Peak Gr.29mmHg LEFT VENTRICLE The left ventricle is normal size. There is normal left ventricular wall thickness. The left ventricular function is normal. The left ventricular ejection fraction is within the normal range. No regional wall motion abnormalities noted. LV FILLING PRESSURE IS MILDLY ELEVATED. No left ventricle thrombus noted on this study. There is no ventricular septal defect visualized. There is no left ventricular aneurysm. There is no mass noted in the left ventricle. RIGHT VENTRICLE The right ventricle is normal size. There is normal right ventricular wall thickness. The right ventricular systolic function is normal. ATRIA The left atrium volume is mildly increased The right atrium size is normal. The interatrial septum is intact with no evidence for an atrial septal defect. AORTIC VALVE The aortic valve is normal in structure and function. No aortic regurgitation is present. There is no aortic valvular stenosis. There is no aortic valvular vegetation. MITRAL VALVE The mitral valve is normal in structure and function. There is no evidence of mitral valve prolapse. There is no mitral valve stenosis. There is no mitral valve regurgitation noted. TRICUSPID VALVE The tricuspid valve is normal in structure and function. There is no tricuspid valve regurgitation noted. There is no tricuspid valve prolapse or vegetation. There is no tricuspid valve stenosis. PULMONIC VALVE The pulmonary valve is normal in structure and function. There is no pulmonic valvular regurgitation. There is no pulmonic valvular stenosis. GREAT VESSELS The aortic root is normal in size. The ascending aorta is normal in size. The pulmonary artery is normal. The IVC is normal in size and collapses >50% with inspiration. PERICARDIAL EFFUSION The pericardium appears normal. There is no pleural effusion. <Conclusion> The left ventricular function is normal. The left ventricular ejection fraction is within the normal range. No regional wall motion abnormalities noted. LV FILLING PRESSURE IS MILDLY ELEVATED. The left atrium volume is mildly increased
== END 2018-01-15 14:30 | disposition home or self-care (01) ==
LOC: C.ER 20:35 → INTOOBSV 23:26 → C.9E 23:26 → C.5S 01-14 10:42
PROVIDERS: ADMIT Hospitalist; ATTEND Hospitalist
DX: R55 Syncope and collapse (principal); E78.5 Hyperlipidemia, unspecified; E11.9 Type 2 diabetes mellitus without complications; I10 Essential (primary) hypertension; I65.29 Occlusion and stenosis of unspecified carotid artery; F17.210 Nicotine dependence, cigarettes, uncomplicated; E89.0 Postprocedural hypothyroidism; Z96.659 Presence of unspecified artificial knee joint
CPT/HCPCS: 36415; 70450; 71045; 71275; 73030; 73562; 80053; 80061; 82948; 83735; 84100; 84484; 85025; 85378; 85610; 85730; 93005; 93306; 93880; 96372; 99285; G0378; Q9967